=== PATIENT | male | born 1945 | race Caucasian/White ===

== ENCOUNTER 2020-02-25 20:06 | Emergency (ER) | payer MEDICARE, OTHER ==
[2020-02-25 20:21] VITALS: BP 156/100
[2020-02-25] MEDS ORDERED: ONDANSETRON HCL INJ/PF 4 MG/2 ML SDV IV ONE (20:41)
--- NOTE | 2020-02-25 20:41 | ER Document Report ---
ED Medical Screen (RME) - General Chief Complaint: Shortness Of Breath Stated Complaint: SHORTNESS OF BREATH Time Seen by Provider: 02/25/20 20:37 Primary Care Provider: SUSAN TRUONG MD [Primary Care Provider] - Follow up as needed Notes: Patient presents complaining of cough, shortness of breath with fever and chills since yesterday. Patient reports nausea and vomiting with vomiting x6 episodes today. Patient denies any diarrhea. Patient does complain of some chest discomfort as well. Patient does have a history of diabetes. I have greeted and performed a rapid initial assessment of this patient. A co mprehensive ED assessment and evaluation of the patient, analysis of test results and completion of the medical decision making process will be conducted by additional ED providers. TRAVEL OUTSIDE OF THE [place] IN LAST 30 DAYS: No Physical Exam - Vital signs Vitals: Temp Pulse Resp BP Pulse Ox 99.3 F 73 22 H 156/100 H 96 02/25/20 20:16 02/25/20 20:16 02/25/20 20:16 02/25/20 20:16 02/25/20 20:16 - Respiratory Respiratory status: Tachypnea Breath sounds: Nonproductive cough, Rales - Lower lobes Course - Vital Signs Vital signs: Temp Pulse Resp BP Pulse Ox 99.3 F 73 22 H 156/100 H 96 02/25/20 20:16 02/25/20 20:16 02/25/20 20:16 02/25/20 20:16 02/25/20 20:16 Doctor's Discharge - Discharge Referrals: SUSAN TRUONG MD [Primary Care Provider] - Follow up as needed
[2020-02-25 21:39] LABS: ABSOLUTE BASOPHILS # (AUTO) 0.1 10^3/uL (0.0-0.2); ABSOLUTE EOSINOPHILS # (AUTO) 0.1 10^3/uL (0.0-0.6); ABSOLUTE LYMPHOCYTES (AUTO) 1.3 10^3/uL (0.5-4.7); ABSOLUTE MONOCYTES (AUTO) 1.9 10^3/uL (0.1-1.4); ABSOLUTE NEUT (AUTO) 9.8 10^3/uL (1.7-8.2); BASOPHILS % (AUTO) 0.6 % (0-2); EOSINOPHILS % (AUTO) 0.4 % (0-6); HEMATOCRIT 40.2 % (37.9-51.0); HEMOGLOBIN 13.7 g/dL (13.5-17.0); LYMPHOCYTES % (AUTO) 10.2 % (13-45); MEAN CORPUSCULAR HEMOGLOBIN 33.8 pg (27.0-33.4); MEAN CORPUSCULAR HGB CONC 34.1 g/dL (32.0-36.0); MEAN CORPUSCULAR VOLUME 99 fl (80-97); MONOCYTES % (AUTO) 14.3 % (3-13); PLATELET COUNT 196 10^3/uL (150-450); RED BLOOD COUNT 4.06 10^6/uL (4.35-5.55); SEGMENTED NEUTROPHILS % (AUTO) 74.5 % (42-78); TOTAL CELLS COUNTED % (AUTO) 100 %; WHITE BLOOD COUNT 13.1 10^3/uL (4.0-10.5)
--- NOTE | 2020-02-25 21:54 | RADIOLOGY REPORT (SQ) ---
EXAM DESCRIPTION: XR CHEST 1 VIEW COMPLETED DATE/TME: 02/25/2020 20:40 CLINICAL HISTORY: 74 years, Male, cp, cough, sob COMPARISON: None. NUMBER OF VIEWS: TECHNIQUE: LIMITATIONS: None. FINDINGS: No evidence of pulmonary infiltrate or pleural effusion. The heart is top normal to mildly enlarged. Pulmonary vascularity appears normal. IMPRESSION: No acute finding. copyright 2010 [employer]- All Rights Reserved
[2020-02-25 21:57] LABS: ALBUMIN 4.2 g/dL (3.5-5.0); ALKALINE PHOSPHATASE 56 U/L (38-126); ANION GAP 14 (5-19); ASPARTATE AMINO TRANSFERASE 24 U/L (17-59); BILIRUBIN,DIRECT 0.6 mg/dL (0.0-0.4); BILIRUBIN,TOTAL 1.2 mg/dL (0.2-1.3); BLOOD UREA NITROGEN 24 mg/dL (7-20); CALCIUM 9.8 mg/dL (8.4-10.2); CARBON DIOXIDE 25 mmol/L (22-30); CHLORIDE 97 mmol/L (98-107); GLUCOSE 101 mg/dL (75-110); POTASSIUM 4.5 mmol/L (3.6-5.0); TOTAL PROTEIN 7.6 g/dL (6.3-8.2)
--- NOTE | 2020-02-25 21:57 | ER Document Report ---
ED General - General Chief Complaint: Flu Symptoms Stated Complaint: SHORTNESS OF BREATH Time Seen by Provider: 02/25/20 20:37 Primary Care Provider: SUSAN TRUONG MD [Primary Care Provider] - Follow up as needed Notes: Patient is a 74-year-old white male with a history of obesity, diabetes, hypertension and hyperlipidemia who presents to the emergency department the chief complaint of generally feeling unwell. States yesterday he started having nausea, body aches, chest pain, shortness of breath, chills, abdominal discomfort. States he googled symptoms of COVID-19 and reports that he had 10 of the 12 listed. He states that he was still feeling unwell the night so he thought he should come in and be evaluated. Patient denies any loss of consciousness. Denies any headache or visual disturbances. Denies any diarrhea or constipation. No recent travel or known sick contacts. Reports subjective fevers at home yesterday. TRAVEL OUTSIDE OF THE [place] IN LAST 30 DAYS: No - Related Data Allergies/Adverse Reactions: No Known Allergies Allergy (Verified 02/25/20 20:55) Home Medications: zocor, tramadol, trigly med, claritin, HCTZ, metformin Past Medical History - Social History Smoking Status: Never Smoker Family History: None Review of Systems - Review of Systems Constitutional: Fever EENT: Nose congestion Cardiovascular: Chest pain Respiratory: Short of breath Gastrointestinal: Abdominal pain, Nausea Genitourinary: denies: Pain Male Genitourinary: denies: Testicular pain Musculoskeletal: Muscle pain Skin: denies: Lesions Hematologic/Lymphatic: denies: Easy bruising Neurological/Psychological: denies: Seizure Physical Exam - Vital signs Vitals: Temp Pulse Resp BP Pulse Ox 99.3 F 73 22 H 156/100 H 96 02/25/20 20:16 02/25/20 20:16 02/25/20 20:16 02/25/20 20:16 02/25/20 20:16 - General General appearance: Appears well, Alert In distress: None Notes: Nontoxic, no acute distress - HEENT Head: Normocephalic, Atraumatic Eyes: Normal Conjunctiva: Normal Pupils: PERRL Tympanic membrane: Normal Nasal: Normal Pharynx: Normal Neck: Normal - Respiratory Respiratory status: No respiratory distress Chest status: Nontender Breath sounds: Normal Chest palpation: Normal - Cardiovascular Rhythm: Irregularly irregular - Abdominal Inspection: Normal Distension: No distension Bowel sounds: Normal Tenderness: Nontender Organomegaly: No organomegaly Notes: Protuberant - Neurological Neuro grossly intact: Yes Cognition: Normal Orientation: AAOx4 - Psychological Associated symptoms: Normal affect, Normal mood - Skin Skin Temperature: Warm Skin Moisture: Dry Skin Color: Normal Course - Re-evaluation Re-evalutation: 02/25/20 21:51 After speaking with the patient and recommending full-scale work-up given the new onset atrial fibrillation with rapid ventricular response the patient became very angry. States he would like his IV out of his arm and to leave. I advised against this strongly. I discussed with him the seriousness of this new previously undiagnosed condition of the irregular heart rhythm and increased risk for including but not limited to stroke, heart attack and mesenteric infarction. Discussed risk of including but not limited to sudden or permanent neurological disability. Patient verbalized that he understood but states that he is feeling stuffy in his mask he is feeling claustrophobic and he wants to be discharged home immediately have his IV removed and states he will call his own doctor. One of the nurses verbalize she heard him say that he should have gone to the [facility] instead. Patient will not admitted with there is suspicion that he is requesting to leave so he may transport himself to the [facility] emergency department. At this point the patient is of sound mind and mental capacity to make informed decision. He is aware of the risks as discussed. I advised he follow-up with an emergency department for his doctor as soon as possible for continued care management. Recommended that he return here or any ER immediately with any new, persistent or worsening symptoms. He verbalized understood and agreed. He is aware that he is free to return here at any time to continue his care. 02/25/20 22:00 Nurse also discussed with patient and he signed AMA form - Vital Signs Vital signs: Temp Pulse Resp BP Pulse Ox 99.3 F 73 22 H 156/100 H 96 02/25/20 20:16 02/25/20 20:16 02/25/20 20:16 02/25/20 20:16 02/25/20 20:16 - Laboratory Result Diagrams: 02/25/20 21:26 02/25/20 21:26 Discharge - Discharge Clinical Impression: Atrial fibrillation with RVR Condition: Serious Disposition: AGAINST MEDICAL ADVICE Instructions: Atrial Fibrillation ([facility]) Additional Instructions: You have chosen to leave today AGAINST MEDICAL ADVICE. As we discussed the condition that you have newly diagnosed atrial fibrillation with a rapid ventricular response is very serious and can be lethal. Please call your doctor as soon as possible or present to the nearest emergency department as soon as possible for continued care management. Referrals: SUSAN TRUONG MD [Primary Care Provider] - Follow up as needed
[2020-02-25 22:09] LABS: TROPONIN I 0.046 ng/mL
[2020-02-25 22:24] LABS: A TYPE INFLUENZA AG NEGATIVE (NEGATIVE); B INFLUENZA AG NEGATIVE (NEGATIVE)
--- NOTE | 2020-02-26 19:14 | EKG REPORT ---
SEVERITY:- ABNORMAL ECG - ATRIAL FIBRILLATION, V-RATE 99-176 PVC ABERRANT COMPLEX REPOLARIZATION ABNORMALITY, PROB RATE RELATED : Confirmed by: Walter Romero MD 26-Feb-2020 19:13:52
== END 2020-02-25 22:03 | disposition left against medical advice (07) ==
LOC: ER 20:06
DX: I48.91 Unspecified atrial fibrillation (principal); R11.0 Nausea; R07.9 Chest pain, unspecified; R06.02 Shortness of breath; R68.83 Chills (without fever); M79.10 Myalgia, unspecified site; R10.9 Unspecified abdominal pain; R09.81 Nasal congestion; E78.5 Hyperlipidemia, unspecified; E78.00 Pure hypercholesterolemia, unspecified; I10 Essential (primary) hypertension; E11.9 Type 2 diabetes mellitus without complications; Z79.84 Long term (current) use of oral hypoglycemic drugs; Z79.899 Other long term (current) drug therapy; Z53.29 Procedure and treatment not carried out because of patient's decision for other reasons
CPT/HCPCS: 93005; 99285; 96374; 36415; 85025; 80053; 84484; 87804; 83880; 71045; 93010; J2405

== ENCOUNTER 2020-03-16 22:17 | Inpatient (IN) | payer MEDICARE, OTHER ==
[2020-03-16 23:04] LABS: HEMATOCRIT 36.8 % (37.9-51.0); HEMOGLOBIN 12.5 g/dL (13.5-17.0); MEAN CORPUSCULAR HEMOGLOBIN 33.1 pg (27.0-33.4); MEAN CORPUSCULAR HGB CONC 34.1 g/dL (32.0-36.0); MEAN CORPUSCULAR VOLUME 97 fl (80-97); PLATELET COUNT 223 10^3/uL (150-450); RED BLOOD COUNT 3.79 10^6/uL (4.35-5.55); RED CELL DISTRIBUTION WIDTH 13.7 % (11.5-14.0); WHITE BLOOD COUNT 28.4 10^3/uL (4.0-10.5)
[2020-03-16 23:08] LABS: INTERNATIONAL RATION (INR) 1.21; PROTHROMBIN TIME 15.5 SEC (11.4-15.4)
[2020-03-16 23:15] LABS: ALBUMIN 3.7 g/dL (3.5-5.0); ALKALINE PHOSPHATASE 56 U/L (38-126); ANION GAP 14 (5-19); ASPARTATE AMINO TRANSFERASE 183 U/L (17-59); BILIRUBIN,DIRECT 0.2 mg/dL (0.0-0.4); BILIRUBIN,TOTAL 1.2 mg/dL (0.2-1.3); BLOOD UREA NITROGEN 41 mg/dL (7-20); CALCIUM 9.3 mg/dL (8.4-10.2); CARBON DIOXIDE 20 mmol/L (22-30); CHLORIDE 96 mmol/L (98-107); GLUCOSE 175 mg/dL (75-110); POTASSIUM 4.1 mmol/L (3.6-5.0); TOTAL PROTEIN 6.9 g/dL (6.3-8.2)
[2020-03-16 23:31] LABS: CREATINE KINASE MB 15.3 ng/mL (<4.55)
--- NOTE | 2020-03-16 23:32 | RADIOLOGY REPORT (SQ) ---
EXAM DESCRIPTION: XR CHEST 1 VIEW COMPLETED DATE/TME: 03/16/2020 23:07 EXAM DESCRIPTION: CHEST SINGLE VIEW CLINICAL HISTORY: Atrial fibrillation. Tachycardia. COMPARISON: 02/25/2020 FINDINGS: Single frontal radiograph view of the chest. Cardiomediastinal silhouette: Cardiac megaly. Leads overlie the chest. Lungs: No consolidation, pneumothorax, or pleural effusion. Bones: No acute osseous abnormality. Upper abdomen: No abnormality identified. IMPRESSION: 1. No acute pulmonary process identified. 2. Cardiomegaly.
--- NOTE | 2020-03-16 23:33 | RADIOLOGY REPORT (SQ) ---
EXAM DESCRIPTION: XR HIP 2 OR MORE VIEWS COMPLETED DATE/TME: 03/16/2020 23:07 CLINICAL HISTORY: 74 years, Male, fall/pain COMPARISON: None. FINDINGS: Single view of the pelvis and lateral view of the left hip. Right total hip arthroplasty. No acute fracture or dislocation. Osteopenia. Mild degenerative endplate spondylosis of the visualized spine. IMPRESSION: 1. No acute fracture or dislocation. copyright 2010 [employer]- All Rights Reserved
[2020-03-16 23:35] LABS: TROPONIN I 0.202 ng/mL
[2020-03-16 23:36] LABS: CREATINE KINASE 9270 U/L (55-170)
[2020-03-16 23:39] LABS: ABSOLUTE LYMPHOCYTES# (MANUAL) 1.4 10^3/uL (0.5-4.7); ABSOLUTE MONOCYTES # (MANUAL) 2.3 10^3/uL (0.1-1.4); BASOPHILS % (MANUAL) 0 % (0-2); EOSINOPHILS % (MANUAL) 0 % (0-6); LYMPHOCYTES % (MANUAL) 5 % (13-45); MONOCYTES % (MANUAL) 8 % (3-13); SEGMENTED NEUTROPHILS % (MAN) 87 % (42-78); TOTAL CELLS COUNTED 100
[2020-03-16 23:40] LABS: PLATELET CLUMPS PRESENT; PLATELET COMMENT ADEQUATE; RBC MORPHOLOGY COMMENT NORMO-CYTIC/CHROMIC; TOXIC VACUOLATION PRESENT
[2020-03-16] MEDS ORDERED: NORMAL SALINE IV ONE (23:47)
[2020-03-16] MEDS ORDERED: NORMAL SALINE IV PRN (23:51)
[2020-03-16] MEDS ORDERED: NORMAL SALINE 1000 ML 1,000 ML IV ONE (23:51)
--- NOTE | 2020-03-16 23:55 | ER Document Report ---
ED General - General Chief Complaint: Fall Stated Complaint: FALL / POSSIBLE SEPSIS Time Seen by Provider: 03/16/20 23:42 TRAVEL OUTSIDE OF THE [place] IN LAST 30 DAYS: No - HPI Context: This is a 74-year-old male with a history of atrial fibrillation and renal insufficiency presenting via EMS to the ED with a chief complaint of left hip pain after falling at home. Patient's fianc is in the room and she relates much of the history. According to the fianc, the patient has not been acting right or feeling well for approximately 3 days. The patient denies any history of COVID-19 infection or known exposure to COVID-19 positive persons or persons under investigation for COVID-19. Patient denies loss of sense of smell but thinks he may have a little loss in his sense of taste. Patient denies mikal rtness of breath, chest pain. Prior to presentation, the fianc had returned from work to find the patient lying on the floor, complaining of left hip pain. She thinks the patient was on the floor for "a couple of hours." Patient states the pain in his left hip is exacerbated by laying on his left side and also exacerbated by movement. Patient denies any alleviating factors. Patient is reportedly compliant with his medications according to the fianc however, when EMS arrived at the scene they found his heart rate to be in the 150s so they started a Cardizem drip at 5 mg/h on the patient. Patient denies dysuria or urinary frequency. Patient denies fever. Associated symptoms: Other - See HPI Exacerbated by: Other - See HPI Relieved by: Other - See HPI - Related Data Allergies/Adverse Reactions: No Known Allergies Allergy (Verified 03/16/20 23:15) Past Medical History - General Information source: Patient, Relative - Phalen's sign - Social History Smoking Status: Never Smoker Chew tobacco use (# tins/day): No Frequency of alcohol use: None Drug Abuse: None Lives with: Spouse/Significant other Family History: None Patient has suicidal ideation: No Patient has homicidal ideation: No - Past Medical History Cardiac Medical History: Reports: Hx Atrial Fibrillation, Hx Hypertension Endocrine Medical History: Reports: Hx Diabetes Mellitus Type 2 Past Surgical History: Reports: Hx Appendectomy, Hx Orthopedic Surgery Review of Systems - Review of Systems Constitutional: No symptoms reported EENT: No symptoms reported Cardiovascular: No symptoms reported Respiratory: No symptoms reported Gastrointestinal: No symptoms reported Genitourinary: No symptoms reported Male Genitourinary: No symptoms reported Musculoskeletal: See HPI, Joint pain Skin: No symptoms reported Hematologic/Lymphatic: No symptoms reported Neurological/Psychological: No symptoms reported -: Yes All other systems reviewed and negative Physical Exam - Vital signs Vitals: Temp 98.4 F 03/16/20 22:17 - Notes Notes: CONSTITUTIONAL [Vital signs reviewed, Patient appears comfortable, Alert and oriented X 3 HEAD [Atraumatic, Normocephalic.] EYES [Eyes are normal to inspection, No discharge from eyes, Extraocular muscles intact, Sclera are normal, Conjunctiva are normal.] ENT [External ears normal to inspection, Nose examination normal, Mouth normal to inspection.] NECK [Normal ROM, No jugular venous distention, No meningeal signs, ] RESPIRATORY CHEST [Chest is nontender, Breath sounds normal, No respiratory distress.] CARDIOVASCULAR [Tachycardia, irregular rhythm no murmurs, Normal S1 S2, No rub, No gallop.] ABDOMEN [Abdomen is nontender, No pulsatile masses, No other masses, Bowel sounds normal, No distension, No peritoneal signs, No hernias.] UPPER EXTREMITY [Inspection normal, No cyanosis, No clubbing, No edema, LOWER EXTREMITY No foreshortening of the left lower extremity is appreciated on exam NEURO [No focal motor deficits, No focal sensory deficits, Speech normal.] SKIN [Skin is warm, Skin is dry, Skin is normal color.] PSYCHIATRIC [Normal affect. ] Course - Re-evaluation Re-evalutation: 03/17/20 04:12 Results of ED MSE discussed with patient and patient's fianc. All questions were answered. Recommendation for admission was discussed with patient. He is agreeable to being admitted. - Vital Signs Vital signs: Temp Pulse Resp BP Pulse Ox 98.4 F 35 H 139/98 H 100 03/16/20 22:17 03/17/20 03:51 03/17/20 03:51 03/17/20 03:51 - Laboratory Result Diagrams: 03/16/20 22:48 03/16/20 22:48 Laboratory results interpreted by me: 03/16/20 03/16/20 03/16/20 00:35 22:48 22:48 WBC 28.4 H RBC 3.79 L Hgb 12.5 L Hct 36.8 L Seg Neuts % (Manual) 87 H Lymphocytes % (Manual) 5 L Abs Neuts (Manual) 24.7 H Abs Monocytes (Manual) 2.3 H PT 15.5 H VBG pH VBG pCO2 Sodium Chloride Carbon Dioxide BUN Creatinine Est GFR ( Amer) Est GFR (MDRD) Non-Af Glucose AST Creatine Kinase CK-MB (CK-2) Urine Protein >=500 H Urine Blood LARGE H Leukocyte Esterase Rfl LARGE H 03/16/20 03/16/20 03/17/20 22:48 22:48 00:09 WBC RBC Hgb Hct Seg Neuts % (Manual) Lymphocytes % (Manual) Abs Neuts (Manual) Abs Monocytes (Manual) PT VBG pH 7.43 H VBG pCO2 34.9 L Sodium 130.4 L Chloride 96 L Carbon Dioxide 20 L BUN 41 H Creatinine 2.89 H Est GFR ( Amer) 26 L Est GFR (MDRD) Non-Af 21 L Glucose 175 H AST 183 H Creatine Kinase 9270 H CK-MB (CK-2) 15.30 H Urine Protein Urine Blood Leukocyte Esterase Rfl - Diagnostic Test Radiology reviewed: Reports reviewed - EKG Interpretation by Me Additional EKG results interpreted by me: 03/17/20 04:13 EKG obtained on 03/16/2012 at 2235 hrs. was interpreted by this MD. Findings irregularly irregular rhythm, rate 102, normal axis, no P waves are similar preceding QRS complex, left bundle branch block is present, QTC is 469, there a re no obvious patterns of ST segment elevation, depression or reciprocal changes present to suggest acute myocardial ischemia or infarction. When compared to prior EKG dated 02/20, morphology is grossly the same. The appearance of the QRS complex appears unchanged from the prior EKG in comparison with today's EKG. Impression: Atrial fibrillation with RVR, left bundle branch block and nonspecific ST segments. - Consults Dr. Leon, Hospitalist Time consulted: 02:30 Reason for consultation: 03/17/20 04:18 Pyelonephritis, leukocytosis, rhabdomyolysis Consulted provider: will come to ER Critical Care Note - Critical Care Note Total time excluding time spent on procedures (mins): 120 - management of a fib with RVR, rhabdomyolysis, pyelonephritis Discharge - Discharge Clinical Impression: Atrial fibrillation with rapid ventricular response, Contusion of left hip, initial encounter, Renal insufficiency, Elevated troponin I level, Pyel onephritis Rhabdomyolysis Qualifiers: Rhabdomyolysis type: traumatic Encounter type: initial encounter Qualified Code(s): T79.6XXA - Traumatic ischemia of muscle, initial encounter Condition: Stable Disposition: ADMITTED INPATIENT Admitting Provider: Edward (Hospitalist) Unit Admitted: Telemetry
[2020-03-16] MEDS ORDERED: CEFTRIAXONE 1 GM/D5W RTU 1 GM/50 ML RTUPB IV ONE (23:59)
[2020-03-17 01:07] LABS: VENOUS BLOOD HCO3 22.7 mmol/L (20-32); VENOUS BLOOD PCO2 34.9 mmHg (35-63); VENOUS BLOOD PH 7.43 (7.30-7.42)
[2020-03-17 01:18] LABS: APPEARANCE,URINE CLOUDY; BILIRUBIN,URINE NEGATIVE (NEGATIVE); COLOR,URINE AMBER; GLUCOSE, URINE NEGATIVE (NEGATIVE); KETONES,URINE NEGATIVE (NEGATIVE); PROTEIN,URINE >=500 mg/dL (NEGATIVE); URINE SPECIFIC GRAVITY 1.016; UROBILINOGEN,URINE NEGATIVE mg/dL (<2.0)
[2020-03-17] MEDS ORDERED: ONDANSETRON HCL INJ/PF 4 MG/2 ML SDV IV PRN (03:35)
[2020-03-17] MEDS ORDERED: ONDANSETRON 4 MG TAB.RAPDIS PO PRN (03:35)
--- NOTE | 2020-03-17 04:06 | PDOC H&P ---
History of Present Illness Admission Date/PCP: 03/17/20 02:53 SUSAN TRUONG MD History of Present Illness: DARREN MEADOWS is a 74 year old male with past medical history significant for H TN, HLD, T2DM who presents ED with fall onto left hip where the patient remained down for approximately 3 hours before being found by his girlfriend, upon EMS arrival found to have heart rate in the 150s in A. fib and started on diltiazem drip in route. CPK up to 9000 on admission. On arrival to ED patient still having heart rate in the 120s and diltiazem drip was increased to additional times up to a rate of 15mg/h with heart rate controlled in the 90s. Cardiology consult placed. Echocardiogram ordered. Patient found to have UTI per UA results, urine culture and blood culture sent. Patient septic as evidenced by white blood cell count up to 28.4 and tachycardia. Patient started on IV ceftriaxone. Also of note, patient has significant GLENNA on CKD 3 per previous records. Presume this is prerenal due to sepsis. Started on IV fluids. Left hip x-ray did not show any acute fracture. Troponin positive but flat x2 and patient denies any chest pain. EKG without acute ST changes however he does have a left bundle branch block and it is unclear if this is old or new. We will get an echocardiogram and have cardiology see him as noted above. Past Medical History Cardiac Medical History: Reports: Atrial Fibrillation, Hypertension Endocrine Medical History: Reports: Diabetes Mellitus Type 2 Past Surgical History Past Surgical History: Reports: Appendectomy, Orthopedic Surgery Social History Information Source: Patient, Emergency Med Personnel Lives with: Family Smoking Status: Never Smoker Electronic Cigarette use?: No Frequency of Alcohol Use: None Hx Recreational Drug Use: No Hx Prescription Drug Abuse: No - Advance Directive Resuscitation Status: Full Code Surrogate healthcare decision maker:: Admitting diagnosis: UTI with sepsis All aspects of code status discussed with patient/POA including cardioversion, chest compressions, and intubation and the patient/POA indicated they wish to be full code MPOA is designated as: Sakshi Martinez Christiano Time spent: Greater than 16 minutes Family History Family History: None, Malignancy Parental Family History Reviewed: Yes Children Family History Reviewed: Yes Sibling(s) Family History Reviewed.: Yes Medication/Allergy Allergies/Adverse Reactions: No Known Allergies Allergy (Verified 03/16/20 23:15) Review of Systems All systems: reviewed and no additional remarkable complaints except as stated - Per HPI otherwise negative Physical Exam Vital Signs: Temp Pulse Resp BP Pulse Ox 98.4 F 27 H 114/89 H 100 03/16/20 22:17 03/17/20 03:21 03/17/20 03:21 03/17/20 03:10 Intake & Output 03/15/20 03/16/20 03/17/20 06:59 06:59 06:59 Intake Total 1050 Balance 1050 Weight 122.47 kg Exam: General appearance: PRESENT: Mild acute distress, obese with BMI 39.9, acutely ill-appearing white male Head exam: PRESENT: atraumatic, normocephalic Eye exam: PRESENT: conjunctiva pink. ABSENT: scleral icterus Mouth exam: PRESENT: moist Respiratory exam: PRESENT: clear to auscultation martin. ABSENT: rales, rhonchi, wheezes Cardiovascular exam: PRESENT: RRR. ABSENT: diastolic murmur, rubs, systolic murmur GI/Abdominal exam: PRESENT: normal bowel sounds, soft, abdominal discomfort with palpation but patient denies tenderness ABSENT: distended, guarding, mass, organolmegaly, rebound, tenderness Neurological exam: PRESENT: alert, awake, oriented to person, oriented to place, oriented to time, oriented to situation Psychiatric exam: PRESENT: appropriate affect, normal mood Skin exam: PRESENT: dry, intact, warm Results Laboratory Results: 03/16/20 22:48 03/16/20 22:48 03/16/20 03/16/20 03/16/20 00:35 22:48 22:48 WBC 28.4 H RBC 3.79 L Hgb 12.5 L Hct 36.8 L MCV 97 MCH 33.1 MCHC 34.1 RDW 13.7 Plt Count 223 Seg Neutrophils % Not Reportable VBG pH VBG pCO2 VBG HCO3 VBG Base Excess Sodium 130.4 L Potassium 4.1 Chloride 96 L Carbon Dioxide 20 L Anion Gap 14 BUN 41 H Creatinine 2.89 H Est GFR ( Amer) 26 L Glucose 175 H Lactic Acid Calcium 9.3 Total Bilirubin 1.2 AST 183 H Alkaline Phosphatase 56 Total Protein 6.9 Albumin 3.7 Urine Color YENI Urine Appearance CLOUDY Urine pH 5.0 Ur Specific [place] 1.016 Urine Protein >=500 H Urine Glucose (UA) NEGATIVE Urine Ketones NEGATIVE Urine Blood LARGE H Urine RBC (Auto) 42 03/17/20 03/17/20 00:09 00:09 WBC RBC Hgb Hct MCV MCH MCHC RDW Plt Count Seg Neutrophils % VBG pH 7.43 H VBG pCO2 34.9 L VBG HCO3 22.7 VBG Base Excess -1.0 Sodium Potassium Chloride Carbon Dioxide Anion Gap BUN Creatinine Est GFR ( Amer) Glucose Lactic Acid 1.1 Calcium Total Bilirubin AST Alkaline Phosphatase Total Protein Albumin Urine Color Urine Appearance Urine pH Ur Specific [place] Urine Protein Urine Glucose (UA) Urine Ketones Urine Blood Urine RBC (Auto) 03/16/20 03/16/20 03/17/20 22:48 22:48 01:20 Creatine Kinase 9270 H CK-MB (CK-2) 15.30 H Troponin I 0.202 0.203 Impressions: Chest X-Ray 03/16/20 22:36 IMPRESSION: 1. No acute pulmonary process identified. 2. Cardiomegaly. Hip X-Ray 03/16/20 22:52 IMPRESSION: 1. No acute fracture or dislocation. copyright 2011 [employer]- All Rights Reserved Assessment and Plan - Diagnosis (1) Pyelonephritis Is this a current diagnosis for this admission?: Yes Plan: UA with significant infection, urine culture sent Blood cultures IV ceftriaxone Intermittent bladder scan to make sure patient is not retaining urine Given complicated UTI in a male with no previous history of this, get CT abdomen/pelvis without contrast; unable to use contrast due to GLENNA (2) Atrial fibrillation with rapid ventricular response Is this a current diagnosis for this admission?: Yes Plan: Likely due to sepsis Treat underlying cause Diltiazem drip Cardiology consult Echocardiogram (3) Acute kidney injury superimposed on CKD Is this a current diagnosis for this admission?: Yes Plan: CKD 3B per records underlying Likely prerenal due to sepsis and rhabdomyolysis from following and remaining down for approximately 2 to 3 hours Trend BMP IV fluids (4) Sepsis Qualifiers: Sepsis type: sepsis due to unspecified organism Sepsis acute organ dysfunction status: with acute organ dysfunction Severe sepsis acute organ dysfunction type: acute renal failure Acute renal failure type: unspecified Severe sepsis shock status: without septic shock Qualified Code(s): A41.9 - Sepsis, unspecified organism; R65.20 - Severe sepsis without septic shock; N17.9 - Acute kidney failure, unspecified Is this a current diagnosis for this admission?: Yes Plan: Due to UTI as above Cultures, antibiotics, IV fluids (5) Suspected COVID-19 virus infection Is this a current diagnosis for this admission?: Yes Plan: ED suspected COVID-19 due to fevers at home and productive cough Patient will remain in Covid isolation unit until test result comes back (6) T2DM (type 2 diabetes mellitus) Qualifiers: Diabetes mellitus exterminator helper termite insulin use: without residential use Diabetes mellitus complication status: without complication Qualified Code(s): E11.9 - Type 2 diabetes mellitus without complications Is this a current diagnosis for this admission?: Yes Plan: Sliding scale insulin, Accu-Cheks Hold Bydureon and Metformin (7) HTN (hypertension) Is this a current diagnosis for this admission?: Yes Plan: Hold BP meds in the setting of sepsis (8) HLD (hyperlipidemia) Is this a current diagnosis for this admission?: Yes Plan: Consider statin (9) Contusion of left hip, initial encounter Is this a current diagnosis for this admission?: Yes Plan: Left hip x-ray without acute fracture (10) Rhabdomyolysis Qualifiers: Rhabdomyolysis type: traumatic Encounter type: initial encounter Qualified Code(s): T79.6XXA - Traumatic ischemia of muscle, initial encounter Is this a current diagnosis for this admission?: Yes Plan: CPK up to 9000 IV fluids Trend BMP - Time Time Spent with patient: 35 or more minutes Medications reviewed and adjusted accordingly: Yes Anticipated Discharge Disposition: Home, Self Care Anticipated Discharge Timeframe: within 72 hours - Inpatient Certification Based on my medical assessment, after consideration of the patient's comorbidities, presenting symptoms, or acuity I expect that the services needed warrant INPATIENT care.: Yes I certify that my determination is in accordance with my understanding of Medicare's requirements for reasonable and necessary INPATIENT services [42 CFR 412.3e].: Yes Medical Necessity: Significant Comorbidiites Make Outpatient Treatment Too Risky, Need Close Monitoring Due to Risk of Patient Decompensation, Need For IV Fluids, Need for IV Antibiotics, Risk of Complication if Not Cared For in Hospital, Risk of Diagnosis Which Will Require Inpatient Eval/Care/Monitoring
[2020-03-17] MEDS: HEPARIN SOD (PORCINE) 5,000 UNIT/ML 1 ML VIAL SUBCUT SCH ×3 (05:36→21:19)
[2020-03-17] MEDS: RINGERS SOLUTION,LACTATED 1,000 ML IV PRN ×2 (05:37→13:32)
[2020-03-17] MEDS: ACETAMINOPHEN 325 MG TABLET PO PRN ×2 (05:52→15:28)
[2020-03-17 07:24] LABS: HEMATOCRIT 33.3 % (37.9-51.0); HEMOGLOBIN 11.2 g/dL (13.5-17.0); MEAN CORPUSCULAR HEMOGLOBIN 33.1 pg (27.0-33.4); MEAN CORPUSCULAR HGB CONC 33.5 g/dL (32.0-36.0); MEAN CORPUSCULAR VOLUME 99 fl (80-97); PLATELET COUNT 173 10^3/uL (150-450); RED BLOOD COUNT 3.37 10^6/uL (4.35-5.55); RED CELL DISTRIBUTION WIDTH 14.1 % (11.5-14.0)
[2020-03-17 07:51] LABS: ANION GAP 13 (5-19); BLOOD UREA NITROGEN 37 mg/dL (7-20); CARBON DIOXIDE 17 mmol/L (22-30); CHLORIDE 103 mmol/L (98-107); GLUCOSE 144 mg/dL (75-110); POTASSIUM 3.6 mmol/L (3.6-5.0)
[2020-03-17] MEDS: INSULIN LISPRO 100 UNIT/ML 3 ML VIAL SUBCUT SCH ×4 (08:29→21:20)
[2020-03-17 08:54] LABS: WHITE BLOOD COUNT 24.5 10^3/uL (4.0-10.5)
[2020-03-17 08:56] LABS: ABSOLUTE LYMPHOCYTES# (MANUAL) 3.2 10^3/uL (0.5-4.7); ABSOLUTE MONOCYTES # (MANUAL) 2.7 10^3/uL (0.1-1.4); BASOPHILS % (MANUAL) 0 % (0-2); EOSINOPHILS % (MANUAL) 0 % (0-6); LYMPHOCYTES % (MANUAL) 13 % (13-45); MONOCYTES % (MANUAL) 11 % (3-13); SEGMENTED NEUTROPHILS % (MAN) 76 % (42-78); TOTAL CELLS COUNTED 100
[2020-03-17 08:57] LABS: ANISOCYTOSIS SLIGHT; BURR CELLS SLIGHT; OVALOCYTES SLIGHT; PLATELET COMMENT ADEQUATE; POIKILOCYTOSIS SLIGHT; POLYCHROMASIA SLIGHT; SPHEROCYTES SLIGHT
--- NOTE | 2020-03-17 09:14 | EKG REPORT ---
SEVERITY:- ABNORMAL ECG - ATRIAL FIBRILLATION, V-RATE 69-138 LEFT BUNDLE BRANCH BLOCK : Confirmed by: Gaye Stapleton 17-Mar-2020 09:14:11
[2020-03-17] MEDS: DILTIAZEM HCL 240 MG CAPSULE.CR PO SCH ×2 (09:51→21:21)
[2020-03-17] MEDS: CEFTRIAXONE 2 GM/D5W RTU 2 GM/50 ML RTUPB IV SCH (09:51)
[2020-03-17] MEDS: DOCUSATE SODIUM 100 MG CAPSULE PO SCH (09:52)
[2020-03-17 09:54] LABS: CREATINE KINASE MB 9.77 ng/mL (<4.55)
[2020-03-17 10:00] LABS: TROPONIN I 0.147 ng/mL
--- NOTE | 2020-03-17 15:02 | RADIOLOGY REPORT (SQ) ---
EXAM DESCRIPTION: CT ABD/PELVIS NO ORAL OR IV IMAGES COMPLETED DATE/TIME: 03/17/2020 1:36 pm REASON FOR STUDY: Vomiting, pyelonephritis, possible renal abscess COMPARISON: None. TECHNIQUE: CT scan of the abdomen and pelvis performed without intravenous or oral contrast. Images reviewed with lung, soft tissue, and bone windows. Reconstructed coronal and sagittal MPR images revi ewed. All images stored on PACS. All CT scanners at this facility use dose modulation, iterative reconstruction, and/or weight based d osing when appropriate to reduce radiation dose to as low as reasonably achievable (ALARA). [facility]: Dose Right [facility]: CareDose [facility]: Dose Right [facility]: Teradose 4D [facility]: Smart [employer] RADIATION DOSE: CT Rad equipment meets quality standard of care and radiation dose reduction techniq ues were employed. CTDIvol: 19.1 mGy. DLP: 1075 mGy-cm.mGy. LIMITATIONS: Mild motion artifact FINDINGS: LOWER CHEST: No significant findings. No nodules or infiltrates. NON-CONTRASTED LIVER, SPLEEN, ADRENALS: Evaluation limited by lack of IV contrast. No identified sign ificant masses. PANCREAS: No masses. No peripancreatic inflammatory changes. GALLBLADDER: No identified stones by CT criteria. No inflammatory changes to suggest cholecystitis. RIGHT KIDNEY AND URETER: No suspicious masses. Assessment limited by lack of IV contrast. 8 mm ston e in the right mid-pole kidney. No definite right ureteral calculi. Calcified right retroperitoneal phlebolith axial image 68, coronal image 55. No hydronephrosis or hydroureter. LEFT KIDNEY AND URETER: No suspicious masses. Assessment limited by lack of IV contrast. No signifi cant calcifications. No hydronephrosis or hydroureter. AORTA AND RETROPERITONEUM: No aneurysm. No retroperitoneal masses or adenopathy. BOWEL AND PERITONEAL CAVITY: Descending colon diverticuli without inflammation. No obvious masses or inflammatory changes. No free fluid. APPENDIX: Normal. PELVIS, BLADDER, AND ABDOMINAL WALL:No abnormal masses. No free fluid. Bladder normal. BONES: No significant findings. OTHER: No other significant finding. IMPRESSION: Nonobstructive 8 mm stone in the right renal pelvis. No ureteral stones or hydronephrosis/hydroureter. No perinephric abscess COMMENT: Quality ID # [id number]: Final reports with documentation of one or more dose reduction techniques (e.g., Automated exposure control, adjustment of the mA and/or kV according to patient size, use of iterative reconstruction technique) TECHNICAL DOCUMENTATION: JOB ID: [id number] 2010 [employer]- All Rights Reserved Reading location - IP/workstation name: [email or web address]
[2020-03-17 16:19] LABS: ANION GAP 13 (5-19); BLOOD UREA NITROGEN 39 mg/dL (7-20); CALCIUM 8.1 mg/dL (8.4-10.2); CARBON DIOXIDE 16 mmol/L (22-30); CHLORIDE 101 mmol/L (98-107); GLUCOSE 185 mg/dL (75-110); POTASSIUM 4.1 mmol/L (3.6-5.0)
[2020-03-17 16:31] LABS: CREATINE KINASE MB 7.23 ng/mL (<4.55); TROPONIN I 0.088 ng/mL
[2020-03-17] MEDS ORDERED: ACETAMINOPHEN 325 MG TABLET PO ONE (17:00)
--- NOTE | 2020-03-17 17:15 | Progress Note ---
Provider Note Provider Note: We switched him over to the p.o. Cardizem this morning and got him off the drip. He is febrile again. Currently on ceftriaxone. He is growing a gram-negative out of his urine. CT of the abdomen and pelvis was remarkable only for a nonobstructing right renal pelvis stone. Blood cultures are still pending. He is gotten a substantial amount of IV fluids and has not put out very much urine. He remains on room air. Dumont catheter was placed to measure urine output. Repeat BMP was obtained and his creatinine has not gone up. We will continue to monitor closely.
[2020-03-17 22:05] LABS: CREATINE KINASE MB 6.64 ng/mL (<4.55)
[2020-03-17 22:10] LABS: TROPONIN I 0.088 ng/mL
[2020-03-18] MEDS: IPRATROPIUM/ALBUTEROL 0.5-2.5 MG/3 ML AMPUL NEB PRN ×2 (00:22→19:41)
[2020-03-18] MEDS ORDERED: DIPHENHYDRAMINE HCL 25 MG CAPSULE PO ONE ×2 (00:30)
[2020-03-18] MEDS: RINGERS SOLUTION,LACTATED 1,000 ML IV PRN ×3 (01:00→17:28)
[2020-03-18 06:22] LABS: HEMOGLOBIN 11.7 g/dL (13.5-17.0); MEAN CORPUSCULAR HEMOGLOBIN 33.4 pg (27.0-33.4); MEAN CORPUSCULAR HGB CONC 34.4 g/dL (32.0-36.0); MEAN CORPUSCULAR VOLUME 97 fl (80-97); PLATELET COUNT 146 10^3/uL (150-450); WHITE BLOOD COUNT 18.3 10^3/uL (4.0-10.5)
[2020-03-18] MEDS: HEPARIN SOD (PORCINE) 5,000 UNIT/ML 1 ML VIAL SUBCUT SCH ×3 (06:35→22:58)
[2020-03-18 06:38] LABS: ANION GAP 14 (5-19); BLOOD UREA NITROGEN 34 mg/dL (7-20); CALCIUM 8.1 mg/dL (8.4-10.2); CARBON DIOXIDE 17 mmol/L (22-30); CHLORIDE 98 mmol/L (98-107); GLUCOSE 162 mg/dL (75-110); POTASSIUM 4.2 mmol/L (3.6-5.0)
[2020-03-18 08:23] LABS: ABSOLUTE LYMPHOCYTES# (MANUAL) 0.7 10^3/uL (0.5-4.7); ABSOLUTE MONOCYTES # (MANUAL) 1.5 10^3/uL (0.1-1.4); ANISOCYTOSIS SLIGHT; BASOPHILS % (MANUAL) 0 % (0-2); EOSINOPHILS % (MANUAL) 0 % (0-6); LYMPHOCYTES % (MANUAL) 4 % (13-45); MONOCYTES % (MANUAL) 8 % (3-13); SEGMENTED NEUTROPHILS % (MAN) 88 % (42-78); TOTAL CELLS COUNTED 100
[2020-03-18 08:24] LABS: PLATELET CLUMPS PRESENT; PLATELET COMMENT DECREASED
[2020-03-18] MEDS: INSULIN LISPRO 100 UNIT/ML 3 ML VIAL SUBCUT SCH ×4 (08:30→22:58)
[2020-03-18] MEDS: DILTIAZEM HCL 240 MG CAPSULE.CR PO SCH ×2 (09:20→22:59)
[2020-03-18] MEDS: CEFTRIAXONE 2 GM/D5W RTU 2 GM/50 ML RTUPB IV SCH (09:20)
[2020-03-18] MEDS: DOCUSATE SODIUM 100 MG CAPSULE PO SCH (09:20)
[2020-03-18 12:47] LABS: CREATINE KINASE MB 5.79 ng/mL (<4.55); TROPONIN I 0.065 ng/mL
--- NOTE | 2020-03-18 17:21 | PDOC PROGRESS REPORT ---
Subjective Date:: 03/18/20 Subjective:: No adverse events overnight. He was febrile yesterday afternoon but has been af ebrile overnight. Today when I came into the room he was completely naked with the sheets off complaining about how hot the room was. I found that the thermostat was turned all the way. I turned it down for him. The nurses told me that he got up and turn the thermostat all the way up and that is why it was so hot in there. He is not been eating very much. He complained of being short of breath but he has a very normal chest examination and his oxygen saturations were in the upper 90s on room air with normal respiratory rate. His heart rate has been well controlled. Blood cultures remain negative. He started to put out some urine overnight. Reason For Visit: ATRIAL FIBRILLATION WITH RAPID VENTRICULAR Physical Exam Vital Signs: Temp Pulse Resp BP Pulse Ox 98.4 F 86 26 H 114/71 93 03/18/20 11:39 03/18/20 14:00 03/18/20 11:39 03/18/20 11:39 03/18/20 11:39 Intake & Output 03/17/20 03/18/20 03/19/20 06:59 06:59 06:59 Intake Total 4720 3785 1290 Output Total 100 735 525 Balance 4620 3050 765 Weight 133.2 kg 135.6 kg General appearance: PRESENT: no acute distress, cooperative, disheveled, morbidly obese, other - As previously noted, laying in the bed completely naked and uncovered Respiratory exam: PRESENT: clear to auscultation martin, symmetrical, unlabored. ABSENT: accessory muscle use, chest wall tenderness, crackles, prolonged expiratory phas, rhonchi, tachypnea, wheezes Cardiovascular exam: PRESENT: irregular rhythm, +S1, +S2 Pulses: PRESENT: normal carotid pulses Vascular exam: PRESENT: normal capillary refill GI/Abdominal exam: PRESENT: normal bowel sounds, soft, other - Pendulous abdominal pannus. ABSENT: distended, guarding, rebound, tenderness Extremities exam: PRESENT: other - Trace ankle edema. ABSENT: clubbing, pedal edema Musculoskeletal exam: PRESENT: normal inspection. ABSENT: deformity Neurological exam: PRESENT: alert, awake, oriented to person, oriented to place, oriented to situation Psychiatric exam: PRESENT: anxious Skin exam: PRESENT: dry, warm Results Laboratory Results: 03/18/20 05:20 03/18/20 05:20 03/18/20 03/18/20 03/18/20 05:20 05:20 05:20 WBC 18.3 H RBC 3.50 L Hgb 11.7 L Hct 34.0 L MCV 97 MCH 33.4 MCHC 34.4 RDW 14.0 Plt Count 146 L Seg Neutrophils % Not Reportable Sodium 129.3 L Potassium 4.2 Chloride 98 Carbon Dioxide 17 L Anion Gap 14 BUN 34 H Creatinine 2.40 H Est GFR ( Amer) 32 L Glucose 162 H Calcium 8.1 L Phosphorus 4.0 Magnesium 1.6 TSH 0.93 03/17/20 00:35 Catheterized Urine Urine Culture - Final Proteus Mirabilis 03/16/20 03/16/20 03/17/20 22:48 22:48 01:20 Creatine Kinase 9270 H CK-MB (CK-2) 15.30 H Troponin I 0.202 0.203 03/17/20 03/17/20 03/17/20 07:28 07:28 15:35 Creatine Kinase 49683 H 9862 H CK-MB (CK-2) 9.77 H Troponin I 0.147 03/17/20 03/17/20 03/17/20 15:35 21:15 21:15 Creatine Kinase 33701 H CK-MB (CK-2) 7.23 H 6.64 H Troponin I 0.088 0.088 03/18/20 03/18/20 11:37 11:37 Creatine Kinase 5758 H CK-MB (CK-2) 5.79 H Troponin I 0.065 Impressions: Chest X-Ray 03/16/20 22:36 IMPRESSION: 1. No acute pulmonary process identified. 2. Cardiomegaly. Hip X-Ray 03/16/20 22:52 IMPRESSION: 1. No acute fracture or dislocation. copyright 2011 [employer]- All Rights Reserved Abdomen/Pelvis CT 03/17/20 00:00 IMPRESSION: Nonobstructive 8 mm stone in the right renal pelvis. No ureteral stones or hydronephrosis/hydroureter. No perinephric abscess Assessment and Plan - Diagnosis (1) Pyelonephritis Is this a current diagnosis for this admission?: Yes (2) Acute kidney injury superimposed on CKD Is this a current diagnosis for this admission?: Yes (3) Atrial fibrillation with rapid ventricular response Is this a current diagnosis for this admission?: Yes (4) Contusion of left hip, initial encounter Is this a current diagnosis for this admission?: Yes (5) Elevated troponin I level Is this a current diagnosis for this admission?: Yes (6) HLD (hyperlipidemia) Is this a current diagnosis for this admission?: Yes (7) HTN (hypertension) Is this a current diagnosis for this admission?: Yes (8) Rhabdomyolysis Qualifiers: Rhabdomyolysis type: traumatic Encounter type: initial encounter Qualified Code(s): T79.6XXA - Traumatic ischemia of muscle, initial encounter Is this a current diagnosis for this admission?: Yes (9) Sepsis Qualifiers: Sepsis type: sepsis due to unspecified organism Sepsis acute organ dysfunction status: with acute organ dysfunction Severe sepsis acute organ dysfunction type: acute renal failure Acute renal failure type: unspecified Severe sepsis shock status: without septic shock Qualified Code(s): A41.9 - Sepsis, unspecified organism; R65.20 - Severe sepsis without septic shock; N17.9 - Acute kidney failure, unspecified Is this a current diagnosis for this admission?: Yes (10) T2DM (type 2 diabetes mellitus) Qualifiers: Diabetes mellitus [facility] insulin use: without [facility] use Diabetes mellitus complication status: without complication Qualified Code(s): E11.9 - Type 2 diabetes mellitus without complications Is this a current diagnosis for this admission?: Yes - Plan Summary Summary: He is on Rocephin and responding, gram-negative alex growing out of the urine, CT the abdomen pelvis remarkable only for a right renal pelvis stone. It may be a nidus of infection. We may need to treat him with a longer course of antibiotics as a result. Sensitivities are pending. He tested negative for coronavirus. Heart rate is well controlled with oral Cardizem. Urine output is improving nicely. Creatinine slowly trending down. Cardiac enzymes are all trending down. CPK is just over 5000. We will continue current treatment and monitor for signs of volume overload. I think more than likely his elevation in his cardiac enzymes was due to a type II effect from demand ischemia. We have slowed down his heart rate given him fluids and his enzymes have all improved. - Time Time Spent with patient: 15-24 minutes Anticipated Discharge Disposition: Undetermined Anticipated Discharge Timeframe: Undetermined
[2020-03-19] MEDS: IPRATROPIUM/ALBUTEROL 0.5-2.5 MG/3 ML AMPUL NEB PRN (07:52)
[2020-03-19 07:53] LABS: ABSOLUTE EOSINOPHILS # (AUTO) 0.1 10^3/uL (0.0-0.6); ABSOLUTE LYMPHOCYTES (AUTO) 0.7 10^3/uL (0.5-4.7); ABSOLUTE MONOCYTES (AUTO) 1.3 10^3/uL (0.1-1.4); ABSOLUTE NEUT (AUTO) 10.4 10^3/uL (1.7-8.2); BASOPHILS % (AUTO) 0.3 % (0-2); EOSINOPHILS % (AUTO) 0.7 % (0-6); HEMATOCRIT 33.1 % (37.9-51.0); HEMOGLOBIN 11.4 g/dL (13.5-17.0); LYMPHOCYTES % (AUTO) 5.8 % (13-45); MEAN CORPUSCULAR HEMOGLOBIN 33.3 pg (27.0-33.4); MEAN CORPUSCULAR HGB CONC 34.4 g/dL (32.0-36.0); MEAN CORPUSCULAR VOLUME 97 fl (80-97); MONOCYTES % (AUTO) 10.7 % (3-13); PLATELET COUNT 157 10^3/uL (150-450); RED BLOOD COUNT 3.42 10^6/uL (4.35-5.55); RED CELL DISTRIBUTION WIDTH 13.6 % (11.5-14.0); SEGMENTED NEUTROPHILS % (AUTO) 82.5 % (42-78); TOTAL CELLS COUNTED % (AUTO) 100 %; WHITE BLOOD COUNT 12.6 10^3/uL (4.0-10.5)
[2020-03-19 08:13] LABS: ANION GAP 15 (5-19); BLOOD UREA NITROGEN 37 mg/dL (7-20); CALCIUM 8.5 mg/dL (8.4-10.2); CARBON DIOXIDE 17 mmol/L (22-30); CHLORIDE 96 mmol/L (98-107); GLUCOSE 154 mg/dL (75-110); POTASSIUM 4.1 mmol/L (3.6-5.0)
[2020-03-19] MEDS: HEPARIN SOD (PORCINE) 5,000 UNIT/ML 1 ML VIAL SUBCUT SCH ×3 (08:26→22:49)
[2020-03-19] MEDS: DILTIAZEM HCL 240 MG CAPSULE.CR PO SCH ×2 (10:39→22:44)
[2020-03-19] MEDS: CEFTRIAXONE 2 GM/D5W RTU 2 GM/50 ML RTUPB IV SCH (10:39)
[2020-03-19] MEDS: DOCUSATE SODIUM 100 MG CAPSULE PO SCH (10:39)
[2020-03-19] MEDS: INSULIN LISPRO 100 UNIT/ML 3 ML VIAL SUBCUT SCH ×4 (14:26→22:47)
--- NOTE | 2020-03-19 19:40 | PDOC PROGRESS REPORT ---
Subjective Date:: 03/19/20 Subjective:: No adverse events overnight. No new complaints. Vital signs been stable. Urdomo e output has been very good. He is feeling a lot better today. He sitting up in the chair with a gown on. He was very talkative. Reason For Visit: ATRIAL FIBRILLATION WITH RAPID VENTRICULAR Physical Exam Vital Signs: Temp Pulse Resp BP Pulse Ox 97.5 F 56 L 18 118/58 L 96 03/19/20 12:09 03/19/20 12:09 03/19/20 12:09 03/19/20 12:09 03/19/20 12:09 Intake & Output 03/18/20 03/19/20 03/20/20 06:59 06:59 06:59 Intake Total 3785 2590 960 Output Total 735 1525 3300 Balance 3050 1065 -2340 Weight 135.6 kg 135.6 kg General appearance: PRESENT: no acute distress, cooperative, disheveled, morbidly obese Respiratory exam: PRESENT: clear to auscultation martin, symmetrical, unlabored. ABSENT: accessory muscle use, chest wall tenderness, crackles, prolonged expiratory phase, rhonchi, tachypnea, wheezes Cardiovascular exam: PRESENT: irregular rhythm, +S1, +S2 Pulses: PRESENT: normal carotid pulses Vascular exam: PRESENT: normal capillary refill GI/Abdominal exam: PRESENT: normal bowel sounds, soft, other - Pendulous abdominal pannus. ABSENT: distended, guarding, rebound, tenderness Extremities exam: PRESENT: other - Trace ankle edema. ABSENT: clubbing, pedal edema Musculoskeletal exam: PRESENT: normal inspection. ABSENT: deformity Neurological exam: PRESENT: alert, awake, oriented to person, oriented to place, oriented to situation Psychiatric exam: PRESENT: Appropriate affect, normal mood Skin exam: PRESENT: dry, warm Results Laboratory Results: 03/19/20 07:24 03/19/20 07:24 03/19/20 03/19/20 07:24 07:24 WBC 12.6 H RBC 3.42 L Hgb 11.4 L Hct 33.1 L MCV 97 MCH 33.3 MCHC 34.4 RDW 13.6 Plt Count 157 Seg Neutrophils % 82.5 H Sodium 127.9 L Potassium 4.1 Chloride 96 L Carbon Dioxide 17 L Anion Gap 15 BUN 37 H Creatinine 2.05 H Est GFR ( Amer) 39 L Glucose 154 H Calcium 8.5 03/16/20 03/16/20 03/17/20 22:48 22:48 01:20 Creatine Kinase 9270 H CK-MB (CK-2) 15.30 H Troponin I 0.202 0.203 03/17/20 03/17/20 03/17/20 07:28 07:28 15:35 Creatine Kinase 14061 H 9862 H CK-MB (CK-2) 9.77 H Troponin I 0.147 03/17/20 03/17/20 03/17/20 15:35 21:15 21:15 Creatine Kinase 36721 H CK-MB (CK-2) 7.23 H 6.64 H Troponin I 0.088 0.088 03/18/20 03/18/20 11:37 11:37 Creatine Kinase 5758 H CK-MB (CK-2) 5.79 H Troponin I 0.065 Impressions: Chest X-Ray 03/16/20 22:36 IMPRESSION: 1. No acute pulmonary process identified. 2. Cardiomegaly. Hip X-Ray 03/16/20 22:52 IMPRESSION: 1. No acute fracture or dislocation. copyright 2011 [employer]- All Rights Reserved Abdomen/Pelvis CT 03/17/20 00:00 IMPRESSION: Nonobstructive 8 mm stone in the right renal pelvis. No ureteral stones or hydronephrosis/hydroureter. No perinephric abscess Assessment and Plan - Diagnosis (1) Pyelonephritis Is this a current diagnosis for this admission?: Yes (2) Acute kidney injury superimposed on CKD Is this a current diagnosis for this admission?: Yes (3) Atrial fibrillation with rapid ventricular response Is this a current diagnosis for this admission?: Yes (4) Contusion of left hip, initial encounter Is this a current diagnosis for this admission?: Yes (5) Elevated troponin I level Is this a current diagnosis for this admission?: Yes (6) HLD (hyperlipidemia) Is this a current diagnosis for this admission?: Yes (7) HTN (hypertension) Is this a current diagnosis for this admission?: Yes (8) Rhabdomyolysis Qualifiers: Rhabdomyolysis type: traumatic Encounter type: initial encounter Qualified Code(s): T79.6XXA - Traumatic ischemia of muscle, initial encounter Is this a current diagnosis for this admission?: Yes (9) Sepsis Qualifiers: Sepsis type: sepsis due to unspecified organism Sepsis acute organ dysfu nction status: with acute organ dysfunction Severe sepsis acute organ dys function type: acute renal failure Acute renal failure type: unspecified Severe sepsis shock status: without septic shock Qualified Code(s): A41.9 - Sepsis, unspecified organism; R65.20 - Severe sepsis without septic shock; N17.9 - Acute kidney failure, unspecified Is this a current diagnosis for this admission?: Yes (10) T2DM (type 2 diabetes mellitus) Qualifiers: Diabetes mellitus [facility] insulin use: without [facility] use Diabetes mellitus complication status: without complication Qualified Code(s): E11.9 - Type 2 diabetes mellitus without complications Is this a current diagnosis for this admission?: Yes - Plan Summary Summary: He is on Rocephin and responding, Proteus growing out of the urine, CT the abdomen pelvis remarkable only for a right renal pelvis stone. It may be a nidus of infection. We may need to treat him with a longer course of antibiotics as a result. There should be several oral agents from which to choose. He tested negative for coronavirus. Heart rate is well controlled with oral Cardizem. He will likely need anticoagulation and outpatient cardiology follow-up. Urine output is improving nicely. Creatinine slowly trending down. Cardiac enzymes are all trending down. We will repeat enzymes in the morning. We will continue current treatment and monitor for signs of volume overload. I think more than likely his elevation in his cardiac enzymes was due to a type II effect from demand ischemia. We have slowed down his heart rate given him fluids and his enzymes have all improved. Anticipate discharge home in a.m. - Time Time Spent with patient: 15-24 minutes Anticipated Discharge Disposition: Home, Self Care Anticipated Discharge Timeframe: within 24 hours
--- NOTE | 2020-03-19 20:21 | CDI QUERY ---
CDI Query CDI Review: We are seeking further clarification of documentation to reflect the severity of illness of your patient. Per Progress Notes: Pyelonephritis Is this a current diagnosis for this admission?: Yes Plan: UA with significant infection, urine culture sent Blood cultures IV ceftriaxone Intermittent bladder scan to make sure patient is not retaining urine Given complicated UTI in a male with no previous history of this, get CT abdomen/pelvis without contrast; unable to use contrast due to GLENNA Based on your medical judgement, can you further clarify in the Progress Notes Acute Pyelonephritis Acute on Chronic Pyelonephritis Chronic Pyelonephritis Unable to determine Other Thank you for your consideration. CHAGO AbreuN RN Clinical Ems Educator Physician Advisor [email or web address]
[2020-03-19] MEDS: RINGERS SOLUTION,LACTATED 1,000 ML IV PRN (22:45)
[2020-03-20] MEDS: HEPARIN SOD (PORCINE) 5,000 UNIT/ML 1 ML VIAL SUBCUT SCH ×2 (06:27→14:28)
[2020-03-20] MEDS: RINGERS SOLUTION,LACTATED 1,000 ML IV PRN (06:32)
[2020-03-20 07:13] LABS: ABSOLUTE EOSINOPHILS # (AUTO) 0.1 10^3/uL (0.0-0.6); ABSOLUTE LYMPHOCYTES (AUTO) 0.8 10^3/uL (0.5-4.7); BASOPHILS % (AUTO) 0.3 % (0-2); EOSINOPHILS % (AUTO) 1.6 % (0-6); HEMATOCRIT 34.2 % (37.9-51.0); HEMOGLOBIN 11.7 g/dL (13.5-17.0); LYMPHOCYTES % (AUTO) 9.1 % (13-45); MEAN CORPUSCULAR HGB CONC 34.1 g/dL (32.0-36.0); MEAN CORPUSCULAR VOLUME 97 fl (80-97); PLATELET COUNT 164 10^3/uL (150-450); RED BLOOD COUNT 3.54 10^6/uL (4.35-5.55); RED CELL DISTRIBUTION WIDTH 13.7 % (11.5-14.0); TOTAL CELLS COUNTED % (AUTO) 100 %
[2020-03-20 07:34] LABS: ANION GAP 11 (5-19); BLOOD UREA NITROGEN 32 mg/dL (7-20); CALCIUM 9.1 mg/dL (8.4-10.2); CARBON DIOXIDE 20 mmol/L (22-30); CHLORIDE 100 mmol/L (98-107); GLUCOSE 154 mg/dL (75-110); POTASSIUM 3.9 mmol/L (3.6-5.0)
[2020-03-20] MEDS: DILTIAZEM HCL 240 MG CAPSULE.CR PO SCH (10:03)
[2020-03-20] MEDS: CEFTRIAXONE 2 GM/D5W RTU 2 GM/50 ML RTUPB IV SCH (10:04)
[2020-03-20] MEDS: INSULIN LISPRO 100 UNIT/ML 3 ML VIAL SUBCUT SCH ×2 (10:04→12:17)
[2020-03-20] MEDS: DOCUSATE SODIUM 100 MG CAPSULE PO SCH (10:04)
[2020-03-20 15:16] VITALS: BP 110/68
--- NOTE | 2020-03-20 18:26 | PDOC DISCHARGE SUMMARY ---
Impression - Admit/DC Date/PCP Admission Date/Primary Care Provider: 03/17/20 02:53 SUSAN TRUONG MD Discharge Date: 03/20/20 - Discharge Diagnosis (1) Acute pyelonephritis Is this a current diagnosis for this admission?: Yes (2) Acute kidney injury superimposed on CKD Is this a current diagnosis for this admission?: Yes (3) Atrial fibrillation with rapid ventricular response Is this a current diagnosis for this admission?: Yes (4) Contusion of left hip, initial encounter Is this a current diagnosis for this admission?: Yes (5) Elevated troponin I level Is this a current diagnosis for this admission?: Yes (6) HLD (hyperlipidemia) Is this a current diagnosis for this admission?: Yes (7) HTN (hypertension) Is this a current diagnosis for this admission?: Yes (8) Rhabdomyolysis Is this a current diagnosis for this admission?: Yes (9) Sepsis Is this a current diagnosis for this admission?: Yes (10) T2DM (type 2 diabetes mellitus) Is this a current diagnosis for this admission?: Yes - Assessment Summary: He is on Rocephin and responding, Proteus growing out of the urine, CT the abdomen pelvis remarkable only for a right renal pelvis stone. It may be a nidus of infection. We may need to treat him with a longer course of antibiotics as a result. There should be several oral agents from which to choose. He tested negative for coronavirus. Heart rate is well controlled with oral Cardizem. He will likely need anticoagulation and outpatient cardiology follow-up. Urine output is improving nicely. Creatinine slowly trending down. Cardiac enzymes are all trending down. We will repeat enzymes in the morning. We will continue current treatment and monitor for signs of volume overload. I think more than likely his elevation in his cardiac enzymes was due to a type II effect from demand ischemia. We have slowed down his heart rate given him fluids and his enzymes have all improved. Anticipate discharge home in a.m. - Additional Information Resuscitation Status: Full Code Discharge Diet: Cardiac, Diabetic Discharge Activity: Slowly Increase Activity Referrals: SUSAN TRUONG MD [Primary Care Provider] - 03/28/20 1:30 pm Prescriptions: Diltiazem HCl [Cardizem Cd 240 mg Capsule.cr] 240 mg PO Q12 #60 capsule.cr Apixaban [Eliquis 5 mg Tablet] 5 mg PO BID #60 tablet Cephalexin Monohydrate [Keflex 500 mg Capsule] 500 mg PO QID #60 capsule Home Medications: Ergocalciferol (Vitamin D2) [Drisdol 50,000 unit (1.25MG) Capsule] 1 cap PO .QWEEKLY 03/17/20 Exenatide Microspheres [Bydureon Bcise] 2 mg SQ .QWEEKLY 03/17/20 Glipizide [Glipizide Xl] 5 mg PO DAILY 03/17/20 Hydrochlorothiazide [Hydrodiuril 25 mg Tablet] 25 mg PO DAILY 03/17/20 Lisinopril [Prinivil] 20 mg PO DAILY 03/17/20 Loratadine [Claritin 10 mg Tablet] 10 mg PO DAILY 03/17/20 Simvastatin [Zocor 40 mg Tablet] 40 mg PO QHS 03/17/20 Tramadol HCl [Ultram 50 mg Tablet] 50 mg PO QIDP PRN 03/17/20 Apixaban [Eliquis 5 mg Tablet] 5 mg PO BID #60 tablet 03/20/20 Cephalexin Monohydrate [Keflex 500 mg Capsule] 500 mg PO QID #60 capsule 03/20/20 Diltiazem HCl [Cardizem Cd 240 mg Capsule.cr] 240 mg PO Q12 #60 capsule.cr 03/20/20 History of Present Illiness History of Present Illness: DARREN MEADOWS is a 74 year old male with past medical history significant for HTN, HLD, T2DM who presents ED with fall onto left hip where the patient remained down for approximately 3 hours before being found by his girlfriend, upon EMS arrival found to have heart rate in the 150s in A. fib and started on diltiazem drip in route. CPK up to 9000 on admission. On arrival to ED patient still having heart rate in the 120s and diltiazem drip was increased to additional times up to a rate of 15mg/h with heart rate controlled in the 90s. Cardiology consult placed. Echocardiogram ordered. Patient found to have UTI per UA results, urine culture and blood culture sent. Patient septic as evidenced by white blood cell count up to 28.4 and tachycardia. Patient started on IV ceftriaxone. Also of note, patient has significant GLENNA on CKD 3 per previous records. Presume this is prerenal due to sepsis. Started on IV fluids. Left hip x-ray did not show any acute fracture. Troponin positive but flat x2 and patient denies any chest pain. EKG without acute ST changes however he does have a left bundle branch block and it is unclear if this is old or new. We will get an echocardiogram and have cardiology see him as noted above. Hospital Course Hospital Course: His echocardiogram looked okay with an EF of 50 to 55%, sclerotic aortic valve, RVSP of 56. It looks like he had a urinary tract infection which triggered dehydration and acute on chronic kidney injury as well as atrial fibrillation. He grew Proteus out of the urine that is fairly sensitive and he will finish up a course of Keflex at home. I put him on a bit of an extended course because he also had a stone of the right renal pelvis and I wanted to make sure he had am ple treatment in case the stone was a nidus of infection. His heart rate was controlled with Cardizem. He was still in atrial fibrillation but his rate was controlled, so he will continue Cardizem at home as well as anticoagulation with Eliquis. He has follow-up with his primary care provider in 1 week. I told him he needs to seek referral to a umbrella tipper hand for further evaluation and monitorin g. He was ambulating independently and on room air and eating and drinking without difficulty. His labs and examination were reassuring and he was discharged in stable condition. Physical Exam Vital Signs: Temp Pulse Resp BP Pulse Ox 98.2 F 63 18 110/68 99 03/20/20 15:11 03/20/20 15:11 03/20/20 15:11 03/20/20 15:11 03/20/20 15:11 Intake & Output 03/19/20 03/20/20 03/21/20 06:59 06:59 06:59 Intake Total 3590 2464 1200 Output Total 1525 5800 1100 Balance 2064 -6 100 Weight 135.6 kg 135.6 kg 135.6 kg General appearance: PRESENT: no acute distress, cooperative, disheveled, morbidly obese Respiratory exam: PRESENT: clear to auscultation martin, symmetrical, unlabored. ABSENT: accessory muscle use, chest wall tenderness, crackles, prolonged expiratory phase, rhonchi, tachypnea, wheezes Cardiovascular exam: PRESENT: irregular rhythm, +S1, +S2 Pulses: PRESENT: normal carotid pulses Vascular exam: PRESENT: normal capillary refill GI/Abdominal exam: PRESENT: normal bowel sounds, soft, other - Pendulous abdominal pannus. ABSENT: distended, guarding, rebound, tenderness Extremities exam: PRESENT: other - Trace ankle edema. ABSENT: clubbing, pedal edema Musculoskeletal exam: PRESENT: normal inspection. ABSENT: deformity Neurological exam: PRESENT: alert, awake, oriented to person, oriented to place, oriented to situation Psychiatric exam: PRESENT: Appropriate affect, normal mood Skin exam: PRESENT: dry, warm Results Laboratory Results: WBC 9.0 10^3/uL (4.0-10.5) 03/20/20 06:22 RBC 3.54 10^6/uL (4.35-5.55) L 03/20/20 06:22 Hgb 11.7 g/dL (13.5-17.0) L 03/20/20 06:22 Hct 34.2 % (37.9-51.0) L 03/20/20 06:22 MCV 97 fl (80-97) 03/20/20 06:22 MCH 33.0 pg (27.0-33.4) 03/20/20 06:22 MCHC 34.1 g/dL (32.0-36.0) 03/20/20 06:22 RDW 13.7 % (11.5-14.0) 03/20/20 06:22 Plt Count 164 10^3/uL (150-450) 03/20/20 06:22 Lymph % (Auto) 9.1 % (13-45) L 03/20/20 06:22 [place] % (Auto) 11.0 % (3-13) 03/20/20 06:22 Eos % (Auto) 1.6 % (0-6) 03/20/20 06:22 Baso % (Auto) 0.3 % (0-2) 03/20/20 06:22 Absolute Neuts (auto) 7.0 10^3/uL (1.7-8.2) 03/20/20 06:22 Absolute Lymphs (auto) 0.8 10^3/uL (0.5-4.7) 03/20/20 06:22 Absolute Monos (auto) 1.0 10^3/uL (0.1-1.4) 03/20/20 06:22 Absolute Eos (auto) 0.1 10^3/uL (0.0-0.6) 03/20/20 06:22 Absolute Basos (auto) 0.0 10^3/uL (0.0-0.2) 03/20/20 06:22 Total Counted 100 03/18/20 05:20 Seg Neutrophils % 78.0 % (42-78) 03/20/20 06:22 Seg Neuts % (Manual) 88 % (42-78) H 03/18/20 05:20 Lymphocytes % (Manual) 4 % (13-45) L 03/18/20 05:20 Monocytes % (Manual) 8 % (3-13) 03/18/20 05:20 Eosinophils % (Manual) 0 % (0-6) 03/18/20 05:20 Basophils % (Manual) 0 % (0-2) 03/18/20 05:20 Abs Neuts (Manual) 16.1 10^3/uL (1.7-8.2) H 03/18/20 05:20 Abs Lymphs (Manual) 0.7 10^3/uL (0.5-4.7) 03/18/20 05:20 Abs Monocytes (Manual) 1.5 10^3/uL (0.1-1.4) H 03/18/20 05:20 Absolute Eos (Manual) 0.0 10^3/uL (0.0-0.6) 03/18/20 05:20 Abs Basophils (Manual) 0.0 10^3/uL (0.0-0.2) 03/18/20 05:20 Toxic Vacuolation PRESENT 03/16/20 22:48 Clumped Platelets PRESENT 03/18/20 05:20 Platelet Comment DECREASED 03/18/20 05:20 Polychromasia SLIGHT 03/17/20 07:08 Poikilocytosis SLIGHT 03/17/20 07:08 Anisocytosis SLIGHT 03/18/20 05:20 Macrocytosis SLIGHT 03/17/20 07:08 Spherocytes SLIGHT 03/17/20 07:08 Ovalocytes SLIGHT 03/17/20 07:08 Chris Cells SLIGHT 03/17/20 07:08 RBC Morph Comment NORMO-CYTIC/CHROMIC 03/16/20 22:48 PT 15.5 SEC (11.4-15.4) H 03/16/20 22:48 INR 1.21 03/16/20 22:48 VBG pH 7.43 (7.30-7.42) H 03/17/20 00:09 VBG pCO2 34.9 mmHg (35-63) L 03/17/20 00:09 VBG HCO3 22.7 mmol/L (20-32) 03/17/20 00:09 VBG Base Excess -1.0 mmol/L 03/17/20 00:09 Sodium 131.2 mmol/L (137-145) L 03/20/20 06:22 Potassium 3.9 mmol/L (3.6-5.0) 03/20/20 06:22 Chloride 100 mmol/L (98-107) 03/20/20 06:22 Carbon Dioxide 20 mmol/L (22-30) L 03/20/20 06:22 Anion Gap 11 (5-19) 03/20/20 06:22 BUN 32 mg/dL (7-20) H 03/20/20 06:22 Creatinine 1.65 mg/dL (0.52-1.25) H 03/20/20 06:22 Est GFR ( Amer) 50 (>60) L 03/20/20 06:22 Est GFR (MDRD) Non-Af 41 (>60) L 03/20/20 06:22 Glucose 154 mg/dL (75-110) H 03/20/20 06:22 POC Glucose 197 mg/dL (70-110) H 03/19/20 21:16 Lactic Acid 0.8 mmol/L (0.7-2.1) 03/17/20 07:08 Calcium 9.1 mg/dL (8.4-10.2) 03/20/20 06:22 Phosphorus 4.0 mg/dL (2.5-4.5) 03/18/20 05:20 Magnesium 1.6 mg/dL (1.6-2.3) 03/18/20 05:20 Total Bilirubin 1.2 mg/dL (0.2-1.3) 03/16/20 22:48 Direct Bilirubin 0.2 mg/dL (0.0-0.4) 03/16/20 22:48 Neonat Total Bilirubin Not Reportable 03/16/20 22:48 Neonat Direct Bilirubin Not Reportable 03/16/20 22:48 Neonat Indirect Bili Not Reportable 03/16/20 22:48 AST 183 U/L (17-59) H 03/16/20 22:48 ALT 45 U/L (<50) 03/16/20 22:48 Alkaline Phosphatase 56 U/L (38-126) 03/16/20 22:48 Creatine Kinase 5758 U/L (55-170) H 03/18/20 11:37 CK-MB (CK-2) 5.79 ng/mL (<4.55) H 03/18/20 11:37 Troponin I 0.065 ng/mL 03/18/20 11:37 Total Protein 6.9 g/dL (6.3-8.2) 03/16/20 22:48 Albumin 3.7 g/dL (3.5-5.0) 03/16/20 22:48 TSH 0.93 uIU/mL (0.47-4.68) 03/18/20 05:20 Urine Color YENI 03/16/20 00:35 Urine Appearance CLOUDY 03/16/20 00:35 Urine pH 5.0 (5.0-9.0) 03/16/20 00:35 Ur Specific [place] 1.016 03/16/20 00:35 Urine Protein >=500 mg/dL (NEGATIVE) H 03/16/20 00:35 Urine Glucose (UA) NEGATIVE mg/dL (NEGATIVE) 03/16/20 00:35 Urine Ketones NEGATIVE mg/dL (NEGATIVE) 03/16/20 00:35 Urine Blood LARGE (NEGATIVE) H 03/16/20 00:35 Urine Nitrite (Reflex) NEGATIVE (NEGATIVE) 03/16/20 00:35 Urine Bilirubin NEGATIVE (NEGATIVE) 03/16/20 00:35 Urine Urobilinogen NEGATIVE mg/dL (<2.0) 03/16/20 00:35 Leukocyte Esterase Rfl LARGE (NEGATIVE) H 03/16/20 00:35 Urine RBC (Auto) 42 /HPF 03/16/20 00:35 Urine WBC (Reflex) > 182 /HPF 03/16/20 00:35 Urine WBC Clumps MANY /HPF 03/16/20 00:35 Squamous Epi Cells Auto 1 /HPF 03/16/20 00:35 Urine Mucus (Auto) RARE /LPF 03/16/20 00:35 Urine Ascorbic Acid NEGATIVE (NEGATIVE) 03/16/20 00:35 COVID-19 Source See comment 03/17/20 01:01 COVID-19 ([facility]) Not Detected (Not Detect) 03/17/20 01:01 03/16/20 03/17/20 03/17/20 22:48 01:20 07:28 CK-MB (CK-2) 15.30 H 9.77 H Troponin I 0.202 0.203 0.147 03/17/20 03/17/20 03/18/20 15:35 21:15 11:37 CK-MB (CK-2) 7.23 H 6.64 H 5.79 H Troponin I 0.088 0.088 0.065 Impressions: Chest X-Ray 03/16/20 22:36 IMPRESSION: 1. No acute pulmonary process identified. 2. Cardiomegaly. Hip X-Ray 03/16/20 22:52 IMPRESSION: 1. No acute fracture or dislocation. copyright 2011 [employer]- All Rights Reserved Abdomen/Pelvis CT 03/17/20 00:00 IMPRESSION: Nonobstructive 8 mm stone in the right renal pelvis. No ureteral stones or hydronephrosis/hydroureter. No perinephric abscess Plan Time Spent: Greater than 30 Minutes Stroke Is this a Stroke Patient?: No Acute Heart Failure Is this a Heart Failure Patient?: No
--- NOTE | 2020-03-20 18:45 | XCELERA REPORT ---
[address] [address] Transthoracic Echocardiogram Report Name: DARREN MEADOWS Age: 74 yrs Gender: Male : 1945 Patient Status: In[facility] Study Date: 03/20/2020 02:33 PM Height: 69 in Weight: 270 lb BSA: 2.3 m2 Procedure: A two-dimensional transthoracic echocardiogram with color flow and Doppler was performed. The study was technically difficult with many images being suboptimal in quality. Reason For Study: afib, possible chf History: ATRIAL FIBRILLATION / CHF. Ordering Physician: KENZIE PAYNE Performed By: Alba Gates Interpretation Summary The left ventricle is normal in size. There is mild concentric left ventricular hypertrophy. LV EF is 65% Left ventricular systolic function is normal. Doppler measurements suggest impaired left ventricular relaxation, which is associated with grade I/IV or mild diastolic dysfunction The left ventricular wall motion is normal. There is no thrombus. No ASD,PFO,OR VSD seen. The right ventricle is normal in size and function. The right ventricle is not well visualized secondary to technical limitations The right atrium is normal. The left atrium is moderately dilated. There is no evidence of mitral valve prolapse. There is no vegetation seen on the mitral valve. There is no mitral valve stenosis. There is a mild to moderate amount of mitral regurgitation There is no aortic valvular vegetation. There is no aortic valve stenosis There is a mild amount of aortic regurgitation There is no tricuspid stenosis. There is a mild to moderate amount of tricuspid regurgitation There is moderate pulmonary hypertension by echo RVSP is 58 mm pf Hg , with RA mean of 15. There is no pulmonic valvular stenosis. There is no pulmonic valvular regurgitation. The aortic root is not well visualized but is probably normal size. IVC is dilated , but decreases > 50% with respiration. There is no pericardial effusion. MMode/2D Measurements & Calculations RVDd: 2.8 cm LVIDd: 4.3 cm FS: 27.3 % Ao root diam: 2.9 cm IVSd: 1.3 cm LVIDs: 3.1 cm EDV(Teich): 82.8 ml Ao root area: 6.7 cm2 LVPWd: 1.2 cm ESV(Teich): 38.5 ml EF(Teich): 53.5 % Doppler Measurements & Calculations MV E max luis miguel: MV dec slope: Ao V2 max: AI max luis miguel: 145.9 cm/sec 797.9 cm/sec2 142.0 cm/sec 308.5 cm/sec MV dec time: Ao max PG: AI max P.1 mmHg 0.18 sec 8.1 mmHg AI dec slope: 119.8 cm/sec2 AI P1/2t: 754.0 msec LV V1 max PG: PA V2 max: PI end-d luis miguel: TR max luis miguel: 6.3 mmHg 87.1 cm/sec 56.8 cm/sec 325.4 cm/sec LV V1 max: PA max P.0 mmHg TR max P.3 mmHg 125.2 cm/sec Left Ventricle The left ventricle is normal in size. There is mild concentric left ventricular hypertrophy. LV EF is 65%. Left ventricular systolic function is normal. Doppler measurements suggest impaired left ventricular relaxation, which is associated with grade I/IV or mild diastolic dysfunction. The left ventricular wall motion is normal. There is no thrombus. No ASD,PFO,OR VSD seen. Right Ventricle The right ventricle is normal in size and function. The right ventricle is not well visualized secondary to technical limitations. Atria The right atrium is normal. The left atrium is moderately dilated. Mitral Valve There is no evidence of mitral valve prolapse. There is no vegetation seen on the mitral valve. There is no mitral valve stenosis. There is a mild to moderate amount of mitral regurgitation. Aortic Valve There is no aortic valvular vegetation. There is no aortic valve stenosis. There is a mild amount of aortic regurgitation. Tricuspid Valve There is no tricuspid stenosis. There is a mild to moderate amount of tricuspid regurgitation. There is moderate pulmonary hypertension by echo. RVSP is 58 mm pf Hg , with RA mean of 15. Pulmonic Valve There is no pulmonic valvular stenosis. There is no pulmonic valvular regurgitation. Great Vessels The aortic root is not well visualized but is probably normal size. IVC is dilated , but decreases > 50% with respiration. Effusions There is no pericardial effusion. : KENZIE PAYNE Lakshmi
== END 2020-03-20 15:53 | disposition home or self-care (01) | DRG 871 ==
LOC: ER 22:17 → EH 03-17 02:53 → 3W 03-17 04:54 → 5 03-18 18:42
PROVIDERS: ADMIT Internal Medicine; ATTEND Family Medicine
PROC: B24BZZ4 Ultrasonography of Heart with Aorta, Transesophageal (ICD-10-PCS; principal; 2020-03-20)
DX: A41.9 Sepsis, unspecified organism (principal); I21.A1 Myocardial infarction type 2; N39.0 Urinary tract infection, site not specified; N17.9 Acute kidney failure, unspecified; N10 Acute pyelonephritis; I13.0 Hypertensive heart and chronic kidney disease with heart failure and stage 1 through stage 4 chronic kidney disease, or unspecified chronic kidney disease; I48.19 Other persistent atrial fibrillation; W19.XXXA Unspecified fall, initial encounter; Z20.828 Contact with and (suspected) exposure to other viral communicable diseases; S70.02XA Contusion of left hip, initial encounter; E78.5 Hyperlipidemia, unspecified; T79.6XXA Traumatic ischemia of muscle, initial encounter; B96.89 Other specified bacterial agents as the cause of diseases classified elsewhere; B96.4 Proteus (mirabilis) (morganii) as the cause of diseases classified elsewhere; N18.30 Chronic kidney disease, stage 3 unspecified; E86.0 Dehydration; R65.20 Severe sepsis without septic shock; E11.22 Type 2 diabetes mellitus with diabetic chronic kidney disease; E66.01 Morbid (severe) obesity due to excess calories; Z79.899 Other long term (current) drug therapy; Z79.01 Long term (current) use of anticoagulants; Z68.39 Body mass index [BMI] 39.0-39.9, adult
CPT/HCPCS: 36415; 71045; 74176; 80048; 80053; 81001; 82550; 82553; 82803; 82962; 83605; 83735; 84100; 84443; 84484; 85025; 85610; 87040; 87086; 87088; 87186; 87635; 93005; 93010; 93306; 94640; 96361; 96365; 99285; C9803; J0696; J1644; J1815; J2405; J7030; J7120; S0119